=== PATIENT | female | born 1945 | race Two or more races ===

== ENCOUNTER → 2017-01-19 | Outpatient (CLI) | payer MEDICARE, OTHER ==
--- NOTE | 2017-01-20 09:46 | RAD ---
DATE: 01/19/2017 EXAM: MAMMO JOSE LUIS SCREENING BILATERAL Bilateral digital screening mammography to include digital breast tomosynthesis (3D mammography) HISTORY: Screening study. COMPARISON: 01/16/2016 This study was interpreted with the benefit of Computerized Aided Detection (CAD). FINDINGS: Digital MLO and CC mammograms of both breasts were obtained. Additionally digital breast tomosynthesis (3D mammography) images of both breasts in the MLO and CC projections were performed. Comparison study is dated 01/16/2016. The breast parenchyma is composed of scattered fibroglandular densities which can obscure a lesion on mammography (breast density code B). No spiculated mass is seen. No malignant appearing calcification or area of architectural distortion is noted. Digital breast tomosynthesis images demonstrate no spiculated mass or malignant appearing calcification. Since the previous examination there has been no significant interval change. IMPRESSION: BI-RADS Category 1, negative. There is no mammographic evidence of malignancy. Routine annual screening mammography is recommended for follow-up. BI-RADS CATEGORY: 1 NEGATIVE RECOMMENDED FOLLOW-UP: 12M 12 MONTH FOLLOW-UP PQRS compliance statement: Patient information was entered into a reminder system with a target due date 01/19/2018 for the next mammogram. Mammography is a sensitive method for finding small breast cancers, but it does not detect them all and is not a substitute for careful clinical examination. A negative mammogram does not negate a clinically suspicious finding and should not result in delay in biopsying a clinically suspicious abnormality. "Our facility is accredited by the [employer] Mammography [employer]."
== END | disposition home or self-care (01) ==
LOC: MAMMO 09:37
PROVIDERS: ATTEND Family Medicine
DX: Z12.31 Encounter for screening mammogram for malignant neoplasm of breast (principal)
CPT/HCPCS: 77063; G0202; 77067

== ENCOUNTER → 2017-02-16 | Outpatient (CLI) | payer MEDICARE, OTHER ==
--- NOTE | 2017-02-16 13:48 | RAD ---
Exam performed: CT abdomen pelvis with without contrast. History: Left flank pain. Date of service: 02/16/17 comparison: None available Technique: Contiguous helical acquisitions are obtained through the abdomen and pelvis without oral or IV contrast. Sagittal and coronal reformatted images are obtained and reviewed. Findings: The lung bases are essentially clear. The visualized heart is normal. Lack of IV contrast limits evaluation of abdominal viscera, however the liver, spleen, pancreas and gallbladder appear normal. Both adrenal glands and bilateral kidneys are normal in size with no evidence of nephrolithiasis or hydronephrosis. There is no perinephric stranding. There is mild atheromatous calcification of the aorta. No retroperitoneal or mesenteric lymphadenopathy. Small and large bowel loops are nondilated and unremarkable. There is scattered stool in the colon. Visualized appendix is normal. Urinary bladder is partially decompressed. The uterus is surgically absent. No adnexal masses. No free or focal fluid collections or pelvic lymphadenopathy seen. Multiple pelvic phleboliths. Interrogation of bone windows demonstrates spondylotic changes. Impression: 1. No acute intra-abdominal or pelvic process detected. 2. No evidence of urolithiasis seen. 3. Appendix is normal PQRS Compliance Statement: One or more of the following individualized dose reduction techniques were utilized for this examination: 1. Automated exposure control 2. Adjustment of the mA and/or kV according to patient size 3. Use of iterative reconstruction technique
== END | disposition home or self-care (01) ==
LOC: CT 11:45
PROVIDERS: ATTEND Family Medicine
DX: N23 Unspecified renal colic (principal); I87.8 Other specified disorders of veins; I70.0 Atherosclerosis of aorta
CPT/HCPCS: 74176

== ENCOUNTER → 2017-02-18 | Outpatient (CLI) | payer MEDICARE, OTHER ==
--- NOTE | 2017-02-18 10:21 | RAD ---
Indication: Left knee pain. Time of exam 10 0 5:00 AM Multiple views of bilateral knees were obtained. Standing AP views as well as bilateral patellar sunrise views and a lateral left knee was performed. Standing views demonstrate fairly significant medial compartmental degenerative change bilaterally, greatest on the left. There is significant joint space narrowing as well as marginal spurring. There appears to be chondrocalcinosis of the lateral compartments as well. There is some chronic calcifications of the medial collateral ligament complexes bilaterally. Patellofemoral alignment is normal bilaterally. There is patellofemoral degenerative change noted bilaterally. No joint effusion is seen. No fractures are identified. Impression: Degenerative changes bilaterally. No acute bony abnormality is detected.
== END | disposition home or self-care (01) ==
LOC: DXRAD 09:48
PROVIDERS: ATTEND Orthopaedic Surgery
DX: M17.0 Bilateral primary osteoarthritis of knee (principal)
CPT/HCPCS: 73564

== ENCOUNTER → 2017-02-25 | Outpatient (CLI) | payer MEDICARE, OTHER ==
--- NOTE | 2017-02-25 15:58 | RAD ---
Examination: CT of the abdomen pelvis without contrast History: History of microscopic hematuria Comparison: 02/16/2017 PQRS Compliance Statement: One or more of the following individualized dose reduction techniques were utilized for this examination: 1. Automated exposure control 2. Adjustment of the mA and/or kV according to patient size 3. Use of iterative reconstruction technique graft technique: Helical CT images of the abdomen is performed without contrast. Coronal and sagittal reformats are performed Findings: Minimal bibasal lung atelectasis identified. No evidence of free air identified in the abdomen. The evaluation of the solid organs is limited due to lack of IV contrast. The evaluation of the bowel is limited due to lack of oral contrast. Cystic structure identified in the right lobe of the liver grossly similar to prior exam probably a cyst. The visualized spleen, adrenals grossly appears unremarkable. The gallbladder is mildly distended. The stomach is mildly distended with food. The pancreas grossly appears unremarkable. The small bowel is nondilated. The appendix is normal. Feces and gas noted in the colon. The urinary bladder is mildly distended. No evidence of intrarenal collecting system calculi identified. No evidence of hydronephrosis. Mild aortic atherosclerosis. No evidence of lytic bony destructive lesion. Mild degenerative changes lumbar spine. Impression: 1. No evidence of intrarenal collecting system calculus or hydronephrosis.
== END | disposition home or self-care (01) ==
LOC: CT 13:40
PROVIDERS: ATTEND Family Medicine
DX: J98.11 Atelectasis (principal); I70.0 Atherosclerosis of aorta; I10 Essential (primary) hypertension; R31.1 Benign essential microscopic hematuria
CPT/HCPCS: 74176

== ENCOUNTER → 2018-01-20 | Outpatient (CLI) | payer MEDICARE, OTHER ==
--- NOTE | 2018-01-20 14:03 | RAD ---
DATE: 01/20/2018 EXAM: MAMMO JOSE LUIS SCREENING BILATERAL HISTORY: Routine screening COMPARISON: 2016 This study was interpreted with the benefit of Computerized Aided Detection (CAD) The breast parenchyma shows scattered fibroglandular densities. Breast parenchyma level B. FINDINGS: 2-D and 3-D tomosynthesis imaging was performed in CC and MLO projections. No new or enlarging breast densities are seen. Benign type calcifications are present. No suspicious microcalcifications have developed. IMPRESSION: Stable mammograms without evidence of malignancy. BI-RADS CATEGORY: 2 BENIGN FINDING(S) RECOMMENDED FOLLOW-UP: 12M 12 MONTH FOLLOW-UP PQRS compliance statement: Patient information was entered into a reminder system with a target due date for the next mammogram. Mammography is a sensitive method for finding small breast cancers, but it does not detect them all and is not a substitute for careful clinical examination. A negative mammogram does not negate a clinically suspicious finding and should not result in delay in biopsying a clinically suspicious abnormality. "Our facility is accredited by the [employer] Mammography Program."
== END | disposition home or self-care (01) ==
LOC: MAMMO 13:08
PROVIDERS: ATTEND Family Medicine
DX: Z12.31 Encounter for screening mammogram for malignant neoplasm of breast (principal); D75.1 Secondary polycythemia
CPT/HCPCS: 77063; 77067

== ENCOUNTER → 2018-09-07 | Outpatient (CLI) | payer MEDICARE, OTHER ==
--- NOTE | 2018-09-07 16:02 | RAD ---
Thyroid ultrasound, 09/07/2018: HISTORY: Hypothyroidism The right lobe of the gland measures 4.1 x 1.7 x 1.8 cm while the left lobe of the gland measures 3.7 x 1.9 x 2.1 cm. Both lobes of the gland are markedly heterogeneous and appear multinodular in character. The nodules are confluent and difficult to separate from one another. No discrete dominant mass is clearly visualized. No thyroid calcifications are evident. The thyroid vascularity appears diffusely increased. IMPRESSION: Mildly enlarged, heterogeneous, hypervascular thyroid gland suggesting chronic thyroiditis. Electronically signed by: John Donohue MD (09/07/2018 3:59 PM) [facility]
== END | disposition home or self-care (01) ==
LOC: US 10:41
PROVIDERS: ATTEND Family Medicine
DX: E04.8 Other specified nontoxic goiter (principal); E03.9 Hypothyroidism, unspecified
CPT/HCPCS: 76536

== ENCOUNTER → 2019-01-20 | Outpatient (CLI) | payer MEDICARE, OTHER ==
--- NOTE | 2019-01-21 18:39 | RAD ---
DATE: 01/20/2019 EXAM: MAMMO JOSE LUIS SCREENING BILATERAL HISTORY: Routine screening COMPARISON: 01/19/2017, 01/20/2018 mammographic exams This study was interpreted with the benefit of Computerized Aided Detection (CAD). Breast Density: SCATTERED The breast parenchyma shows scattered fibroglandular densities. Breast parenchyma level B. FINDINGS: Benign calcifications are present. No distortion or mass. No suspicious calcification. IMPRESSION: Benign findings. BI-RADS CATEGORY: 1 NEGATIVE RECOMMENDED FOLLOW-UP: 12M 12 MONTH FOLLOW-UP PQRS compliance statement: Patient information was entered into a reminder system with a target due date in one year for the next mammogram. Mammography is a sensitive method for finding small breast cancers, but it does not detect them all and is not a substitute for careful clinical examination. A negative mammogram does not negate a clinically suspicious finding and should not result in delay in biopsying a clinically suspicious abnormality. "Our facility is accredited by the [employer] Mammography Program."
== END | disposition home or self-care (01) ==
LOC: MAMMO 13:17
PROVIDERS: ATTEND Family Medicine
DX: Z12.31 Encounter for screening mammogram for malignant neoplasm of breast (principal)
CPT/HCPCS: 77063; 77067

== ENCOUNTER → 2020-04-17 | Outpatient (CLI) | payer MEDICARE, OTHER ==
--- NOTE | 2020-04-17 19:07 | RAD ---
DATE: 04/17/2020 11:01 AM EXAM: MAMMO JOSE LUIS SCREENING BILATERAL HISTORY: Screening COMPARISON: 01/20/2019, 01/20/2018 and 01/19/2017 Bilateral CC and MLO views of the breasts were performed. Bilateral breast tomosynthesis was performed in CC and MLO projections. This study was interpreted with the benefit of Computerized Aided Detection (CAD). FINDINGS: Breast Density: SCATTERED The breast parenchyma shows scattered fibroglandular densities. Breast parenchyma level B No suspicious masses, microcalcifications or architectural distortion is present to suggest malignancy in either breast. The visualized axillae are unremarkable. IMPRESSION: No mammographic evidence of malignancy. BI-RADS CATEGORY: 1 NEGATIVE RECOMMENDED FOLLOW-UP: 12M 12 MONTH FOLLOW-UP Annual screening mammography is recommended, unless clinically indicated sooner based on symptoms or change in physical exam. PQRS compliance statement: Patient information was entered into a reminder system with a target due date 04/18/2021 for the next mammogram. Mammography is a sensitive method for finding small breast cancers, but it does not detect them all and is not a substitute for careful clinical examination. A negative mammogram does not negate a clinically suspicious finding and should not result in delay in biopsying a clinically suspicious abnormality. "Our facility is accredited by the [employer] Mammography Program."
== END ==
LOC: MAMMO 10:42
PROVIDERS: ATTEND Family Medicine
DX: Z12.31 Encounter for screening mammogram for malignant neoplasm of breast (principal)
CPT/HCPCS: 77063; 77067

== ENCOUNTER → 2021-04-19 | Outpatient (CLI) | payer MEDICARE, OTHER ==
--- NOTE | 2021-04-19 14:05 | RAD ---
MG BILAT SCREEN+JOSE LUIS 04/19/2021 10:52 AM INDICATION: Asymptomatic screening mammogram. COMPARISON: 04/17/2020, 01/20/2019, 01/20/2018 TECHNIQUE: 3D tomosynthesis was performed in CC and MLO projections. 2D views were obtained from the 3D data. CAD was utilized as needed. FINDINGS: Breast density: Category B: There are scattered areas of fibroglandular density. Right breast: There are no suspicious microcalcifications, masses or areas of architectural distortio n. Left breast: There are no suspicious microcalcifications, masses or areas of architectural distortion . Bilateral mammogram is compared to prior examinations appears unchanged. IMPRESSION: Negative bilateral mammogram. BI-RADS category: 1; Negative Recommendations: Recommend annual screening mammography in one year. Electronically signed by: Vivienne Brasher MD (04/19/2021 2:03 PM) [id number]
== END ==
LOC: MAMMO 10:17
PROVIDERS: ATTEND Family Medicine
DX: Z12.31 Encounter for screening mammogram for malignant neoplasm of breast (principal)
CPT/HCPCS: 77063; 77067